=== PATIENT | female | born 1980 | race Caucasian/White ===

== ENCOUNTER 2018-01-04 07:09 | Outpatient (CLI) | payer OTHER | END 2018-01-04 07:11 | disposition home or self-care (01) | LOC: RAD 07:09 | DX: Z01.818 Encounter for other preprocedural examination (principal) ==

== ENCOUNTER 2018-01-04 07:30 | Inpatient (IN) | payer OTHER ==
[~2018-01-04] VITALS: Ht 170.2 cm; Wt 81.6 kg
== END 2018-01-12 13:47 | disposition home or self-care (01) | DRG 621 ==
LOC: O/R 01-11 05:35 → SURH 01-11 05:35
PROVIDERS: Plastic Surgery
PROC: 0JB80ZZ Excision of Abdomen Subcutaneous Tissue and Fascia, Open Approach (ICD-10-PCS; 2018-01-11)
PROC: 0HBV0ZZ Excision of Bilateral Breast, Open Approach (ICD-10-PCS; principal; 2018-01-11 07:00)
DX: E65 Localized adiposity (principal); Z98.84 Bariatric surgery status; M62.08 Separation of muscle (nontraumatic), other site; N62 Hypertrophy of breast; E66.01 Morbid (severe) obesity due to excess calories

== ENCOUNTER 2018-01-24 07:00 | Day surgery (SDC) | payer OTHER ==
[~2018-01-24] VITALS: Ht 172.7 cm; Wt 79.4 kg
== END 2018-01-24 13:00 | disposition home or self-care (01) ==
LOC: CIR.AMB 07:00 → ER 08:14 → SEC-K 12:53 → SURH 12:53 → CIR.AMB 13:00 → EDSTATUS 14:00 → SEC-K 16:00 → SURH 21:03 → SEC-K 21:03
DX: L76.32 Postprocedural hematoma of skin and subcutaneous tissue following other procedure (principal)